=== PATIENT | female | born 1985 | race Caucasian/White ===

== ENCOUNTER 2022-04-20 20:03 | Emergency (ER) | payer MEDICAID ==
[~2022-04-20] VITALS: Ht 160 cm; Wt 115.7 kg
[~2022-04-20 20:03] MED LIST: ACET1TAB12 PO; METH-603 PO
[2022-04-20 20:35] LABS: BASOPHILS # (AUTO) 0.1 X10'3 (0-0.2); BASOPHILS % (AUTO) 0.5 % (0-1); EOSINOPHILS # (AUTO) 0.1 X10'3 (0-0.9); EOSINOPHILS % (AUTO) 1.1 % (0-6); HEMATOCRIT 41.5 % (35.0-45.0); HEMOGLOBIN 13.8 g/dl (12.0-16.0); LYMPHOCYTES # (AUTO) 2.6 X10'3 (1.1-4.8); LYMPHOCYTES % (AUTO) 19.3 % (21-51); MEAN CORPUSCULAR HEMOGLOBIN 28.2 PG (27.0-31.0); MEAN CORPUSCULAR HGB CONC 33.3 g/dL (33.0-36.5); MEAN CORPUSCULAR VOLUME 84.6 FL (78-98); MEAN PLATELET VOLUME 7.8 FL (7.4-10.4); MONOCYTES % (AUTO) 7.2 % (2-12); NEUTROPHILS # (AUTO) 9.6 X10'3 (1.8-7.7); NEUTROPHILS % (AUTO) 71.9 % (42-75); PLATELET COUNT 380 X10'3 (140-440); RED BLOOD COUNT 4.91 X10'6 (4.20-5.60); RED CELL DISTRIBUTION WIDTH 13.9 % (11.5-14.5); WHITE BLOOD COUNT 13.3 X10'3 (4.5-11.0)
[2022-04-20 20:43] VITALS: BP 158/84
[2022-04-20 20:56] LABS: ALANINE AMINOTRANSFERASE 24 U/L (12-78); ALBUMIN 3.7 G/DL (3.4-5.0); ALKALINE PHOSPHATASE 71 IU/L (46-116); ANION GAP 9 (8-16); ASPARTATE AMINO TRANSFERASE 14 U/L (10-37); BILIRUBIN,TOTAL 0.3 MG/DL (0.1-1.0); BLOOD UREA NITROGEN 13 MG/DL (7-18); BUN/CREATININE RATIO 14.9 (6.6-38.0); CALCIUM 9.1 MG/DL (8.5-10.1); CHLORIDE 102 MMOL/L (99-107); CREATININE 0.87 MG/DL (0.40-0.90); GLUCOSE 107 MG/DL (70-104); MAGNESIUM 2.2 MG/DL (1.5-2.4); POTASSIUM 3.8 MMOL/L (3.5-5.1); SODIUM 137 MMOL/L (135-145); TOTAL CARBON DIOXIDE 25.8 MMOL/L (24-32); TOTAL PROTEIN 7.5 G/DL (6.4-8.2); eGFR 74 ML/MIN
== END 2022-04-20 23:12 | disposition left against medical advice (07) ==
LOC: ER 20:03
DX: R07.9 Chest pain, unspecified (principal); Z53.21 Procedure and treatment not carried out due to patient leaving prior to being seen by health care provider
CPT/HCPCS: 36415; 80053; 83735; 83880; 84484; 85025; 93005

== ENCOUNTER 2022-06-04 11:34 | Emergency (ER) | payer MEDICAID ==
[~2022-06-04] VITALS: Ht 160 cm; Wt 117.0 kg
[2022-06-04 12:27] LABS: BASOPHILS % (AUTO) 0.4 % (0-1); EOSINOPHILS # (AUTO) 0.2 X10'3 (0-0.9); EOSINOPHILS % (AUTO) 1.6 % (0-6); HEMOGLOBIN 15.3 g/dl (12.0-16.0); LYMPHOCYTES # (AUTO) 1.9 X10'3 (1.1-4.8); LYMPHOCYTES % (AUTO) 16.9 % (21-51); MEAN CORPUSCULAR HGB CONC 33.2 g/dL (33.0-36.5); MEAN CORPUSCULAR VOLUME 84.2 FL (78-98); MEAN PLATELET VOLUME 7.5 FL (7.4-10.4); MONOCYTES # (AUTO) 0.7 X10'3 (0-0.9); MONOCYTES % (AUTO) 6.1 % (2-12); NEUTROPHILS # (AUTO) 8.3 X10'3 (1.8-7.7); PLATELET COUNT 399 X10'3 (140-440); RED BLOOD COUNT 5.47 X10'6 (4.20-5.60); RED CELL DISTRIBUTION WIDTH 13.7 % (11.5-14.5); WHITE BLOOD COUNT 11.1 X10'3 (4.5-11.0)
[2022-06-04 12:47] LABS: ALANINE AMINOTRANSFERASE 30 U/L (12-78); ALBUMIN 4.2 G/DL (3.4-5.0); ALBUMIN/GLOBULIN RATIO 1.1 (1.1-1.5); ALKALINE PHOSPHATASE 87 IU/L (46-116); ANION GAP 7 (8-16); ASPARTATE AMINO TRANSFERASE 21 U/L (10-37); BILIRUBIN,TOTAL 0.4 MG/DL (0.1-1.0); BLOOD UREA NITROGEN 8 MG/DL (7-18); BUN/CREATININE RATIO 11.4 (6.6-38.0); CALCIUM 9.4 MG/DL (8.5-10.1); CHLORIDE 102 MMOL/L (99-107); GLUCOSE 88 MG/DL (70-104); MAGNESIUM 2.2 MG/DL (1.5-2.4); POTASSIUM 3.6 MMOL/L (3.5-5.1); SODIUM 138 MMOL/L (135-145); TOTAL CARBON DIOXIDE 29.5 MMOL/L (24-32); TOTAL PROTEIN 8.2 G/DL (6.4-8.2); eGFR > 90 ML/MIN
[2022-06-04 13:05] VITALS: BP 108/77
== END 2022-06-04 14:49 | disposition home or self-care (01) ==
LOC: ER 11:35
DX: R07.89 Other chest pain (principal); F41.9 Anxiety disorder, unspecified; F17.200 Nicotine dependence, unspecified, uncomplicated; Z90.49 Acquired absence of other specified parts of digestive tract; Z98.890 Other specified postprocedural states; Z79.899 Other long term (current) drug therapy
CPT/HCPCS: 36415; 71045; 80053; 83735; 83880; 84484; 85025; 93005; 99285

== ENCOUNTER 2025-04-22 09:03 | Outpatient (CLI) | payer OTHER, BC ==
--- NOTE | 2025-04-22 21:06 | CARDIOLOGY REPORT ---
APPROVED REPORT EXAM: Comprehensive 2D, Doppler, and color-flow Echocardiogram. Patient Location: OUT-PATIENT Blood Pressure: 119/82 mmHg Heart Rate: 75 bpm Rhythm: NSR Indications Mitral Regurgitation Signs And Displays Sales Representative is Brianda Fink MD No previous echo 2D Dimensions LA Diam 3.6 cm IVSd 1.1 (0.7-1.1cm) LVDd 4.7 cm PWd 0.9 (0.7-1.1cm) IVSs 1.5 (0.8-1.2cm) LVDs 3.1 (2.5-4.0cm) PWs 1.4 (0.8-1.2cm) LVOT Diameter 2.10 (1.8-2.4cm) LVEF(%) 63.3 (>50%) Ao Asc Diam. 3.12 cm IVC 16.49 mm FS (%) 34.3 % SV 65.1 ml M-Mode Dimensions MV EPSS 0.9 (<0.5cm) Aortic Valve AoV Peak Dorian. 138.0 cm/s AoV VTI 22.7 cm AO Peak GR. 7.6 mmHg AO Mean GR. 3 mmHg LVOT VTI 21.50 cm LVOT Peak Dorian. 110.8 cm/s REY (VMAX) 2.77 cm2 REY (VTI) 3.27 cm2 AV DI 0.95 % Mitral Valve MV E Velocity 84.0 cm/s MV DECEL TIME 202 ms MV A Velocity 74.4 cm/s MV PHT 56 ms E/A Ratio 1.1 MVA (PHT) 3.96 cm2 TDI E/Medial E' 8.3 Tricuspid Valve TR P. Velocity 173 cm/s RAP ESTIMATE 10 mmHg TR Peak Gr. 12 mmHg RVSP 22 mmHg Pulmonary Vein S2 Velocity 40.88 cm/s PVa Duration 74 msec LEFT VENTRICLE Normal LV size and wall thickness. Overall systolic function is normal. LVEF is 65%. RIGHT VENTRICLE RV appears normal in size and function. ATRIA The left atrium size is normal. AORTIC VALVE Trileaflet AV appears sclerotic without stenosis. Trivial insufficiency by color and spectral flow Doppler. MITRAL VALVE No MV annular calcification without stenosis. Trace regurgitation by color and spectral flow Doppler. TRICUSPID VALVE TV appears structurally normal with trace regurgitation by color and spectral flow Doppler. PULMONIC VALVE Normal PV without stenosis, physiologic insufficiency by color and spectral flow Doppler. GREAT VESSELS The aortic root is normal in size. The ascending aorta is normal in size. The IVC is normal in size and collapses >50% with inspiration. PERICARDIUM There is no pericardial effusion. Other Information Study Quality: Adequate Conclusion Normal chamber sizes. LV normal in size and thickness. No significant wall motion abnormalities, LVEF 65%. Normal RV size and function. Normal valve structures and function. Unable to estimate RVSP due to inadequate TR jet. IVC normal in size with normal respiratory variation, Estimated CVP 3 mmHg. No pericardial effusion
== END 2025-04-22 23:59 | disposition home or self-care (01) ==
LOC: CARD DIAG 09:03
PROVIDERS: ATTEND Physician Assistant
DX: I08.8 Other rheumatic multiple valve diseases (principal)
CPT/HCPCS: 93306